=== PATIENT | female | born 1985 | race Caucasian/White ===

== ENCOUNTER 2016-07-31 00:38 | Inpatient (IN) | payer MEDICAID ==
[~2016-07-31] VITALS: Ht 167.6 cm; Wt 72.0 kg
[2016-07-31] MEDS ORDERED: OXYTOCIN 10UNIT/ML 1ML VIAL IM ONE (00:40)
[2016-07-31] MEDS ORDERED: WITCH HAZEL-GLYCERIN PAD TOP ONE (00:44)
[2016-07-31] MEDS ORDERED: DERMOPLAST 60ML BOTTLE TOP ONE (00:44)
[2016-07-31] MEDS ORDERED: PHISODERM TOP SOLN 240ML BTL TOP ONE (00:44)
[2016-07-31] MEDS ORDERED: MAGNESIUM SULFATE 40MG/ML 1,000 ML IV ONE (00:46)
[2016-07-31] MEDS ORDERED: hydrALAZINE HCL 20 MG/ML VL ONE ×2 (00:57→01:31)
[2016-07-31] MEDS ORDERED: MAGNESIUM SULFATE 40MG/ML 1,000 ML IV SCH (01:12)
[2016-07-31] MEDS ORDERED: PHISODERM TOP SOLN 240ML BTL TOP PRN (01:30)
[2016-07-31] MEDS ORDERED: WITCH HAZEL-GLYCERIN PAD TOP PRN (01:30)
[2016-07-31] MEDS ORDERED: DERMOPLAST 60ML BOTTLE TOP PRN (01:30)
[2016-07-31 02:25] LABS: Basophils # (auto) 0 uL; Basophils % (auto) 0.2 % (0.0-2.0); Eosinophils # (auto) 0.1 uL; Eosinophils % (auto) 0.3 % (0.0-7.0); Hematocrit 42.3 % (36.0-46.0); Hemoglobin 14.1 g/dL (12.2-16.2); Lymphocytes # (auto) 1.5 uL; Mean Corpuscular Hemoglobin 28.8 pg (28.0-32.0); Mean Corpuscular Hgb Conc. 33.4 g/dL (32.0-36.0); Mean Corpuscular Volume 86.2 fL (80.0-100.0); Mean Platelet Volume 11.8 fL (7.4-10.4); Monocytes # (auto) 0.6 uL; Monocytes % (auto) 3.4 % (0.0-12.0); Neutrophils # (auto) 16.6 uL; Neutrophils % (auto) 88.1 % (37.0-80.0); Platelet Count (auto) 168 10^3/uL (140-450); White Blood Cell 18.8 10^3/uL (4.4-10.8)
[2016-07-31 02:31] LABS: Urine Bilirubin Negative (Negative); Urine Color Yellow (Yellow); Urine Glucose Normal (Normal); Urine Ketone Negative (Negative); Urine Nitrite Negative (Negative); Urine RBC 31 /hpf (0 - 4); Urine Squamous Epithelial Cell FEW /hpf (<5); Urine Urobilinogen Normal (Negative); Urine pH 6.5 (5.0-8.0)
[2016-07-31 02:33] LABS: Urine Blood 2+ /uL (Negative)
[2016-07-31 02:42] LABS: Partial Thromboplastin Time 26.3 sec (22.64-33.71)
[2016-07-31 02:43] LABS: INR 0.85 (0.9-1.15); Prothrombin Time 9.3 sec (9.37-12.3)
[2016-07-31 02:55] LABS: Albumin 2.1 g/dL (3.4-5.0); BUN/Creatinine Ratio 16.2; Calcium 8.1 mg/dL (8.5-10.1); Potassium 3.6 mmol/L (3.5-5.1)
[2016-07-31 02:57] LABS: Bilirubin, Total 0.6 mg/dL (0.2-1.0); Total Protein 6.3 g/dL (6.4-8.2)
[2016-07-31 03:08] LABS: Temperature: 20.6 C (20.0-25.0)
[2016-07-31] MEDS ORDERED: cefTRIAXone 1GM/50ML D5W 50 ML IV ONE ×2 (03:18→04:33)
[2016-07-31] MEDS: LABETALOL HCL 5 MG/ML 4ML SYRINGE IV ONE ×2 (03:28→03:40)
[2016-07-31] MEDS ORDERED: LABETALOL HCL 5 MG/ML 4ML SYRINGE IV ONE (03:45)
[2016-07-31] MEDS ORDERED: SODIUM CHLORIDE 0.9% 1,000 ML IV ONE (04:45)
[2016-07-31 06:00] VITALS: BP 131/82
[2016-07-31] MEDS ORDERED: ACETAMINOPHEN 500 MG TAB PO PRN (07:30)
[2016-07-31 08:00] VITALS: BP 135/77
[2016-07-31] MEDS ORDERED: hydrALAZINE HCL 25 MG TAB PO PRN (10:45)
[2016-07-31] MEDS ORDERED: ONDANSETRON HCL 4 MG/2 ML VIAL IV PRN (10:45)
[2016-07-31 11:52] VITALS: BP 138/79
[2016-07-31 16:00] VITALS: BP 149/91
[2016-07-31 17:49] VITALS: BP 145/96
[2016-07-31] MEDS ORDERED: LABETALOL HCL 200 MG TAB ONE (18:39)
[2016-07-31] MEDS: LABETALOL HCL 200 MG TAB PO SCH (19:00)
[2016-07-31 20:30] VITALS: BP 125/76
[2016-08-01 04:00] VITALS: BP 145/87
[2016-08-01] MEDS ORDERED: PREN-96 BC (07:30)
[2016-08-01 07:31] VITALS: BP 148/80
[2016-08-01] MEDS: LABETALOL HCL 200 MG TAB PO SCH (09:53)
[2016-08-01 11:30] VITALS: BP 128/81
[2016-08-01 12:15] VITALS: BP 128/81
== END 2016-08-01 15:00 | disposition home or self-care (01) | DRG 561 ==
LOC: OBSVTOIN 00:38 → LDRP 00:38 → DOU IN ICU 05:50 → LDRP 17:30
PROVIDERS: ADMIT Obstetrics & Gynecology; ATTEND Specialist
DX: Z39.0 Encounter for care and examination of mother immediately after delivery (principal); I11.0 Hypertensive heart disease with heart failure; I50.9 Heart failure, unspecified; O99.43 Diseases of the circulatory system complicating the puerperium; Z87.440 Personal history of urinary (tract) infections; O71.82 Other specified trauma to perineum and vulva; O16.5 Unspecified maternal hypertension, complicating the puerperium; Z80.9 Family history of malignant neoplasm, unspecified; O99.325 Drug use complicating the puerperium; O99.335 Smoking (tobacco) complicating the puerperium; F15.10 Other stimulant abuse, uncomplicated; F19.10 Other psychoactive substance abuse, uncomplicated
CPT/HCPCS: 36415; 51702; 59025; 71010; 80053; 80307; 81001; 81002; 83735; 83880; 84550; 85025; 85610; 85730; 86592; 86703; 86762; 86850; 86900; 86901; 87081; 87340; 93005; 93306; 96361; 96365; 96366; 96372; 96375; G0378; J0696; J3490

== ENCOUNTER 2022-10-25 02:52 | Emergency (ER) | payer MEDICAID ==
[~2022-10-25] VITALS: Ht 167.6 cm; Wt 72.0 kg
[~2022-10-25 02:52] MED LIST: PREN-96 BC
[2022-10-25] MEDS ORDERED: SODIUM CHLORIDE 0.9% 1,000 ML IVB ONE (07:00)
[2022-10-25 07:49] LABS: Alanine Aminotransferase 16 U/L (7-40); Albumin 4.5 g/dL (3.2-4.8); Alkaline Phosphatase 73 U/L (46-116); Anion Gap 1.7 (5-15); Aspartate Aminotransferase 13 U/L (13-40); BUN/Creatinine Ratio 13.9 (10.0-20.0); Bilirubin, Total 1.3 mg/dL (0.2-1.0); Blood Alcohol < 3.0 mg/dL (<10); Blood Urea Nitrogen 17 mg/dL (9-23); Calcium 8.9 mg/dL (8.5-10.1); Carbon Dioxide 30.3 mmol/L (20-30); Chloride 106 mmol/L (98-107); Glucose 118 mg/dL (74-106); Potassium 5.4 mmol/L (3.5-5.1); Sodium 138 mmol/L (136-145); Total Protein 7.1 g/dL (5.7-8.2)
[2022-10-25 07:50] LABS: Basophils # (auto) 0.1 10 ^3/uL (0-0.2); Basophils % (auto) 0.5 % (0.0-2.0); Eosinophils # (auto) 0.1 10 ^3/uL (0-0.8); Eosinophils % (auto) 0.6 % (0.0-7.0); Hematocrit 47.3 % (36.0-46.0); Hemoglobin 15.9 g/dL (12.2-16.2); Lymphocytes # (auto) 1.9 10 ^3/uL (0.4-5.4); Lymphocytes % (auto) 18.6 % (10.0-50.0); Mean Corpuscular Hemoglobin 28.8 pg (28.0-32.0); Mean Corpuscular Hgb Conc. 33.5 g/dL (32.0-36.0); Mean Corpuscular Volume 85.9 fL (80.0-100.0); Monocytes # (auto) 0.7 10 ^3/uL (0-1.3); Monocytes % (auto) 7.2 % (0.0-12.0); Neutrophils # (auto) 7.4 10 ^3/uL (1.6-8.6); Neutrophils % (auto) 73.1 % (37.0-80.0); Nucleated Red Blood Cells % 0.1 %; Red Blood Cells 5.51 10^6/uL (4.0-5.20); Red Cell Distribution Width 14.1 % (11.8-14.3); White Blood Cell 10.2 10^3/uL (4.4-10.8)
[2022-10-25] MEDS ORDERED: FUROSEMIDE 40 MG/4 ML VIAL IV ONE (10:00)
[2022-10-25] MEDS ORDERED: InsuLIN REG 1unit/0.01ml Soln (100units/ml) IV ONE (10:00)
[2022-10-25] MEDS ORDERED: DEXTROSE (50%) 50ML SYRG IV ONE (10:00)
[2022-10-25 15:33] VITALS: BP 141/62
[2022-10-25 15:34] VITALS: PULSE 90; RESP 16; O2SAT 98
== END 2022-10-25 13:58 | disposition home or self-care (01) ==
LOC: ER 02:52 → EDBD 02:52 → ER 13:58
DX: F15.10 Other stimulant abuse, uncomplicated (principal); F17.210 Nicotine dependence, cigarettes, uncomplicated
CPT/HCPCS: 36415; 80053; 80320; 82962; 84132; 85025; 96361; 96374; 96375; 99285; J1815; J1940; J7030; J7042

== ENCOUNTER 2023-07-16 21:26 | Emergency (ER) | payer MEDICAID ==
[~2023-07-16] VITALS: Ht 167.6 cm; Wt 65.0 kg
[2023-07-16 23:30] VITALS: BP 144/89; PULSE 88; RESP 16; O2SAT 96
== END 2023-07-16 23:30 | disposition home or self-care (01) ==
LOC: ER 21:26
DX: S01.81XA Laceration without foreign body of other part of head, initial encounter (principal); S01.111A Laceration without foreign body of right eyelid and periocular area, initial encounter; F17.210 Nicotine dependence, cigarettes, uncomplicated; F15.90 Other stimulant use, unspecified, uncomplicated; Z79.899 Other long term (current) drug therapy; W01.0XXA Fall on same level from slipping, tripping and stumbling without subsequent striking against object, initial encounter; Y93.89 Activity, other specified; Y92.89 Other specified places as the place of occurrence of the external cause; Y99.8 Other external cause status
CPT/HCPCS: 12014; 70450; 70486